=== PATIENT | female | born 1980 | race Caucasian/White ===

== ENCOUNTER 2020-04-13 06:13 | Day surgery (SDC) | payer OTHER ==
[~2020-04-13] VITALS: Ht 165.1 cm; Wt 61.2 kg
[2020-04-13 06:27] VITALS: BP 119/70
[2020-04-13 14:24] VITALS: BP 99/63
== END 2020-04-13 13:20 | disposition home or self-care (01) ==
LOC: DS 06:13 → OR 08:30 → DS 13:20
PROVIDERS: ATTEND Obstetrics & Gynecology
DX: Z30.2 Encounter for sterilization (principal)
CPT/HCPCS: C1758; J0690; J2175; J2250; J3010; J3490; U0003-CS